=== PATIENT | female | born 1970 | race Caucasian/White ===

== ENCOUNTER 2019-11-29 10:04 | Emergency (ER) | payer MEDICAID, SELFPAY ==
[2019-11-29 10:08] VITALS: BP 128/76; PULSE 87; RESP 18; TEMP 36.8; O2SAT 100; BMI 27.4
[2019-11-29 10:16] LABS: Glucose Point of Care 153 mg/dL (70-110)
--- NOTE | 2019-11-29 10:31 | ECG_ITS ---
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 Measurements Intervals [place] Rate: 71 P: 57 CT: 122 QRS: 48 QRSD: 90 T: 34 QT: 373 QTc: 407 Interpretive Statements SINUS RHYTHM POSSIBLE LEFT ATRIAL ENLARGEMENT [-0.1mV P WAVE IN V1/V2] Compared to ECG 01/24/2018 05:42:34 No significant changes Electronically Signed On 12-01-2019 0:21:47 CDT by Gerardo Devries M.D. [email or web address]
--- NOTE | 2019-11-29 10:31 | XRR_ITS ---
PROCEDURE INFORMATION: Exam: XR Right Ribs with PA Chest, 3 Views Exam date and time: 11/29/2019 11:10 AM Age: 49 years old Clinical indication: Injury or trauma; Fall; Initial encounter; Rib area; Blunt trauma (contusions or hematomas); Additional info: Fall, R rib pain TECHNIQUE: Imaging protocol: XR Right ribs 3 views with PA chest. COMPARISON: CR Chest 1 view [id number] 01/25/2018 4:53 AM FINDINGS: Lungs: Unremarkable. No consolidation. Pleural space: Unremarkable. No pleural effusion. No pneumothorax. Heart/Mediastinum: Unremarkable. No cardiomegaly. Bones/joints: There is a nondisplaced fracture of the lateral aspect of the right 7th and 8th ribs. XR/XR ribs RT mn 3V w CXR1V [id number] IMPRESSION: There is a nondisplaced fracture of the lateral aspect of the right 7th and 8th ribs.
--- NOTE | 2019-11-29 10:32 | W.ED.SYNCOPE ---
HPI - Syncope General: Chief Complaint: Fall Stated Complaint: BS LOW AND FALL WITH RIB PAIN TODAY Time Seen by Provider: 11/29/19 10:11 Source: patient Mode of arrival: ambulatory Limitations: no limitations History of Present Illness: HPI narrative: Patient is a 49-year-old female who presents to ED today with complaint of a syncopal episode and right rib pain. Patient tells me she has a history of hypoglycemia and believes that is what happened today. She states about 2 weeks ago she had a similar incident where she became lightheaded and dizzy and sweaty and almost passed out . She states she ate something sweet and began feeling better. She states today she had similar symptoms but a family member in the room states she lost consciousness for approximately 45 seconds. There was no seizure like movements. There was no incontinence. Patient did not stop breathing. She states when she came to she was able to eat peanut butter and something sugary and began feeling better. Family member states when she passed out she struck her right ribs on a coffee table. Patient denies chest pain, shortness of breath, difficulty breathing. MD complaint: loss of consciousness, felt faint and collapsed Onset (ago): hour(s) -: second(s) Prodromal symptoms: vision changes, lightheaded and diaphoresis Witnessed: Yes - by Other (family) Context: at rest Injuries sustained associated with event: chest Associated symptoms: Deny abdominal pain, chest pain (R rib pain), fever(s), headache(s), lightheadedness or nausea History: previous syncopal episode (pre-syncopal event) Treatments prior to arrival: glucose (ate peanut butter and sugary drink ) Review of Systems Const: Denies: fever(s), chills, body aches, change in appetite, change in weight, fatigue or malaise Eyes: Denies: change in vision, blurry vision, photophobia, floaters or seeing flashes Card: Denies: chest pain (R rib pain), palpitations, irregular heart rhythm, edema, swelling of feet/ankles, lightheadedness, syncope, pre-syncope, dyspnea on exertion or orthopnea Resp: Denies: dyspnea, productive cough, hemoptysis or chest congestion GI: Denies: abdominal pain, nausea, vomiting or diarrhea : Denies: flank pain, difficulty voiding, dysuria, urinary frequency or urinary urgency Musc: Denies: neck pain, back pain, extremity pain, extremity swelling, joint pain or joint swelling Skin/Breast: Denies: rash Neuro: Reports: dizziness (subsided now); Denies: headache(s), numbness in extremities, weakness in extremities, sensory changes, lack of coordination or difficulty walking Physical Exam Const: COMMON NORMALS: no acute distress, average body habitus, patient oriented x3, no limitations, healthy appearing, alert and well nourished ORIENTATION/CONSCIOUSNESS: Yes oriented to person, Yes oriented to place and Yes oriented to time HENMT: COMMON NORMALS: normocephalic and atraumatic HEAD & SCALP: normocephalic and atraumatic Eye: COMMON NORMALS: Equal, round and reactive pupils present and EOMs intact bilaterally GENERAL EYE: appearance normal, both eyes and all related structures PUPIL: Yes Equal, round and reactive pupils present Neck/C-Spine: COMMON NORMALS: full ROM CERVICAL SPINE: Yes cervical ROM normal, No pain with cervical ROM, No Cervical spine tenderness and No Paracervical muscle tenderness Chest: COMMONS NORMALS: normal inspection of the chest OTHER: TTP R lower anterior/lateral ribs; no crepitus Resp: COMMON NORMALS: normal respiratory effort and clear to auscultation bilaterally AUSCULTATION: clear to auscultation bilaterally Cardio: COMMON NORMALS: regular rate and regular rhythm RATE: regular rate RHYTHM: regular rhythm GI: COMMON NORMALS: Normal to inspection, nondistended, normoactive bowel sounds present, Soft to palpation, non-tender, No hepatosplenomegaly present and no masses PALPATION: Yes Soft to palpation and Yes No hepatosplenomegaly present Extremity: GENERAL: Yes normal exam except as noted Neuro: COMMON NORMALS: patient oriented x3 SENSORIUM/ORIENTATION: Yes alert, Yes oriented to person, Yes oriented to place and Yes oriented to time Skin: COMMON NORMALS: no rashes or lesions noted GENERAL SKIN EXAM: no rashes or lesions noted Course Vital Signs: Vital signs: Vital Signs Temperature 98.3 F 11/29/19 10:08 Pulse Rate 64 11/29/19 12:44 Respiratory Rate 16 11/29/19 12:44 Blood Pressure 114/72 11/29/19 12:44 Pulse Oximetry 96 11/29/19 12:44 MDM - Syncope MDM Narrative: Medical decision making narrative: Patient's vitals have been stable here. Her laboratory work-up overall is fairly benign. She does have some elevated LFTs. Her ALT has been elevated previously. She has no history of hepatitis. Recommend these get followed up with her PCP. Head CT is normal. She does have a right rib fracture that is nondisplaced. Recommend she get a glucometer so she is able to test her blood sugars when she becomes symptomatic. Return to ED precautions given. Lab Data: Labs: Lab Results 11/29/19 11/29/19 11/29/19 Range/Units 10:12 10:39 10:39 WBC 10.0 (4.0-10.0) 10^3/ uL RBC 4.26 (4.1-5.3) 10^6/u L Hgb 13.2 (11.5-15.3) g/dL Hct 41.5 (37.0-47.0) % MCV 97.4 (81-99) fL MCH 31.0 (28.0-34.0) pg MCHC 31.8 (30.0-36.0) g/dL RDW 13.1 (12.1-15.1) % Plt Count 271 (130-400) 10^3/c mm MPV 10.0 (7.4-10.4) fL Neut % (Auto) 74.4 % Lymph % (Auto) 16.0 % [place] % (Auto) 4.8 % Eos % (Auto) 3.5 % Baso % (Auto) 0.7 % Neut # (Auto) 7.44 (1.8-7.7) 10^3/u L Lymph # (Auto) 1.6 (0.8-4.8) 10^3/u L Hettinger # (Auto) 0.5 (0.2-0.9) 10^3/u L Eos # (Auto) 0.4 (0.0-0.8) 10^3/u L Baso # (Auto) 0.1 (0.0-0.1) 10^3/u L Nucleated RBC % (a uto) 0 % Nucleated RBCs # 0.0 /100WBC Sodium 138 (136-145) mmol/L Potassium 4.2 (3.5-5.1) mmol/L Chloride 102 (98-107) mmol/L Carbon Dioxide 27 (22-29) mmol/L Anion Gap 13.2 (5-19) BUN 15 (6-20) mg/dL Creatinine 0.9 (0.5-0.9) mg/dL GFR Calculation 67.1 L (90-130) mL/min Glucose 126 H (65-115) mg/dL POC Glucose 153 (70-110) mg/dL Calculated Osmolal ity 284 L (285-295) mOsm/k g Calcium 9.4 (8.5-10.5) mg/dL Total Bilirubin 0.2 (0.15-1.2) mg/dL AST 111 H (0-32) U/L ALT 175 H (0-33) U/L Alkaline Phosphata se 101 (35-105) IU/L Troponin T Gen 5 n g/L (0-10) ng/L Total Protein 6.6 (6.6-8.7) g/dL Albumin 4.3 (3.5-5.2) g/dL Globulin 2.3 (1.3-4.6) g/dL Urine Opiates Scre en (Negative) ng/mL Ur Barbiturates Sc reen (Negative) ng/mL Ur Phencyclidine S crn (Negative) ng/mL Ur Amphetamines Sc reen (Negative) ng/mL U Benzodiazepines Scrn (Negative) ng/mL Urine Cocaine Scre en (Negative) ng/mL U Marijuana (THC) Screen (Negative) ng/mL 11/29/19 11/29/19 Range/Units 10:39 11:20 WBC (4.0-10.0) 10^3/ uL RBC (4.1-5.3) 10^6/u L Hgb (11.5-15.3) g/dL Hct (37.0-47.0) % MCV (81-99) fL MCH (28.0-34.0) pg MCHC (30.0-36.0) g/dL RDW (12.1-15.1) % Plt Count (130-400) 10^3/c mm MPV (7.4-10.4) fL Neut % (Auto) % Lymph % (Auto) % [place] % (Auto) % Eos % (Auto) % Baso % (Auto) % Neut # (Auto) (1.8-7.7) 10^3/u L Lymph # (Auto) (0.8-4.8) 10^3/u L Hettinger # (Auto) (0.2-0.9) 10^3/u L Eos # (Auto) (0.0-0.8) 10^3/u L Baso # (Auto) (0.0-0.1) 10^3/u L Nucleated RBC % (a uto) % Nucleated RBCs # /100WBC Sodium (136-145) mmol/L Potassium (3.5-5.1) mmol/L Chloride (98-107) mmol/L Carbon Dioxide (22-29) mmol/L Anion Gap (5-19) BUN (6-20) mg/dL Creatinine (0.5-0.9) mg/dL GFR Calculation (90-130) mL/min Glucose (65-115) mg/dL POC Glucose (70-110) mg/dL Calculated Osmolal ity (285-295) mOsm/k g Calcium (8.5-10.5) mg/dL Total Bilirubin (0.15-1.2) mg/dL AST (0-32) U/L ALT (0-33) U/L Alkaline Phosphata se (35-105) IU/L Troponin T Gen 5 n g/L 8 (0-10) ng/L Total Protein (6.6-8.7) g/dL Albumin (3.5-5.2) g/dL Globulin (1.3-4.6) g/dL Urine Opiates Scre en Negative (Negative) ng/mL Ur Barbiturates Sc reen Negative (Negative) ng/mL Ur Phencyclidine S crn Negative (Negative) ng/mL Ur Amphetamines Sc reen Negative (Negative) ng/mL U Benzodiazepines Scrn Negative (Negative) ng/mL Urine Cocaine Scre en Negative (Negative) ng/mL U Marijuana (THC) Screen Positive H (Negative) ng/mL Imaging Data^: CT Head: Radiologist's impression: [address] [address] [address] Scan Report Signed Patient: Trina Medina Unit #: [id number] : 1970 Age/Sex: 49 / F ADM Date: 11/29/19 Loc: ER Room/Bed: Attending Dr: Ordering Provider/Ordering MD: Barbara Flowers Date of Service: 11/29/19 Procedure(s): CT head wo con* [id number] Accession Number(s): [id number] Report Number: [id number] PROCEDURE INFORMATION: Exam: CT Head Without Contrast Exam date and time: 11/29/2019 10:55 AM Age: 49 years old Clinical indication: Injury or trauma; Initial encounter; Blunt trauma (contusions or hematomas); With loss of consciousness; Not specified; Injury date: 11/28/2019; Patient HX: Syncope, fall; Additional info: Syncopal episodes TECHNIQUE: Imaging protocol: Computed tomography of the head without contrast. Radiation optimization: All CT scans at this facility use at least one of these dose optimization techniques: automated exposure control; mA and/or kV adjustment per patient size (includes targeted exams where dose is matched to clinical indication); or iterative reconstruction. COMPARISON: No relevant prior studies available. RADIATION DOSE METRICS: Total DLP (mGy-cm): 761.02 FINDINGS: Brain: Quiroz white matter distinction is maintained throughout the brain. No radiographic evidence of intracranial hemorrhage. No CT evidence of mass hemorrhage or acute infarction. Ventricles: Ventricles are of normal size and configuration. Bones/joints: Unremarkable. No acute fracture. Sinuses: Visualized sinuses are unremarkable. No fluid levels. Mastoid air cells: Visualized mastoid air cells are well aerated. Soft tissues: Unremarkable. Other findings: No intra or extra-axial masses, lesions or collections. CT/CT head wo con* [id number] IMPRESSION: No acute intracranial process is appreciated. Radiation Dose CTDIVOL = (mGy): DLP = 761.02 (mGy-cm) Dictated By: Walter Araya MD Signed By: Walter Araya MD Signed Date/Time: 11/29/19 1157 DD/ 1156 R ribs/CXR: My impression: single R non-displaced rib fx EKG Data^: EKG 1: EKG interpretation date: 11/29/19 EKG interpretation time: 10:51 Interpretation: Sinus rhythm Rate [address] elevation or depression changes noted Discharge Plan Discharge Patient Disposition: Home Clinical Impression: Elevated LFTs Right rib fracture Qualifiers: Encounter type: initial encounter Rib fracture type: single rib Fracture type: closed Qualified Code(s): S22.31XA - Fracture of one rib, right side, initial encounter for closed fracture Episode of syncope Qualifiers: Syncope type: unspecified Qualified Code(s): R55 - Syncope and collapse Condition: Stable Prescriptions: New hydrocodone-acetaminophen 5-325 mg tablet 1 tab PO Q6H PRN (Reason: pain) Qty: 14 RF: 0 No Action Aspir-81 81 mg Tablet,Delayed Release (Dr/Ec) 81 mg PO DAILY RF: 0 Aleve 220 mg Tablet 440 mg PO PRN RF: 0 Discharge Orders: Discharge Order (Routine); Ordered 11/29/19 Ordered By: Barbara Flowers Patient Instructions: Hypoglycemia, Rib Fracture (ED), Fractures - Rib Activity Restrictions/Additional Instructions: As discussed you may purchase a glucometer so you are able to measure your blood sugar when you feel symptomatic. Please follow-up with your primary care provider in 1 week. As discussed your liver enzymes are elevated today. These need to be rechecked or reevaluated through primary care. Stand Alone Forms: Work/School Release Discharge Date/Time: 11/29/19 12:45 Coding Level of Care Code ED [employer] for [employer] Fwd Exam Comprehensive
[2019-11-29 10:37] VITALS: BP 128/76; PULSE 80; RESP 16; O2SAT 99
[2019-11-29 10:46] LABS: Basophils # 0.1 10^3/uL (0.0-0.1); Basophils % 0.7 %; Eosinophils # 0.4 10^3/uL (0.0-0.8); Eosinophils % 3.5 %; Hematocrit 41.5 % (37.0-47.0); Hemoglobin 13.2 g/dL (11.5-15.3); Lymphocytes # 1.6 10^3/uL (0.8-4.8); Mean Corpuscular HGB Conc 31.8 g/dL (30.0-36.0); Mean Corpuscular Volume 97.4 fL (81-99); Monocytes # 0.5 10^3/uL (0.2-0.9); Monocytes % 4.8 %; Neutrophils # 7.44 10^3/uL (1.8-7.7); Neutrophils % 74.4 %; Nucleated Red Blood Cells % 0 %; Platelet Count 271 10^3/cmm (130-400); Red Blood Count 4.26 10^6/uL (4.1-5.3); Red Cell Distribution Width 13.1 % (12.1-15.1)
[2019-11-29 11:25] LABS: Alanine Aminotransferase 175 U/L (0-33); Albumin Level 4.3 g/dL (3.5-5.2); Alkaline Phosphatase 101 IU/L (35-105); Anion Gap 13.2 (5-19); Aspartate Amino Transferase 111 U/L (0-32); Blood Urea Nitrogen 15 mg/dL (6-20); Calcium 9.4 mg/dL (8.5-10.5); Carbon Dioxide 27 mmol/L (22-29); Chloride 102 mmol/L (98-107); Globulin 2.3 g/dL (1.3-4.6); Glomerular Filtration Rate 67.1 mL/min (90-130); Glucose 126 mg/dL (65-115); Osmolality Calculated 284 mOsm/kg (285-295); Potassium 4.2 mmol/L (3.5-5.1); Sodium 138 mmol/L (136-145); Total Bilirubin 0.2 mg/dL (0.15-1.2); Total Protein 6.6 g/dL (6.6-8.7)
[2019-11-29 11:27] VITALS: RESP 18
[2019-11-29 11:27] LABS: Troponin T (5th) Once 8 ng/L (0-10)
[2019-11-29] MEDS: morphine 4 mg/mL SDV 1 mL IM (11:27)
[2019-11-29] MEDS: ondansetron 2 mg/ML SDV 2 mL 4 MG IM (11:27)
[2019-11-29 12:00] VITALS: BP 114/72; RESP 20; O2SAT 96
[2019-11-29 12:08] LABS: Amphetamines Screen Urine Negative (Negative); Barbiturates Screen Urine Negative (Negative); Benzodiazepines Screen Urine Negative (Negative); Cocaine Screen Urine Negative (Negative); Opiate Screen Urine Negative (Negative); PCP Screen Urine Negative (Negative); THC Screen Urine Positive (Negative)
[2019-11-29 12:44] VITALS: BP 114/72; PULSE 64; RESP 16; O2SAT 96
== END 2019-11-29 12:45 | disposition home or self-care (01) ==
PROVIDERS: Emergency Provider Physician Assistant
DX: S22.31XA Fracture of one rib, right side, initial encounter for closed fracture (principal); R55 Syncope and collapse; R79.89 Other specified abnormal findings of blood chemistry; Z79.82 Long term (current) use of aspirin; W19.XXXA Unspecified fall, initial encounter
CPT/HCPCS: 12345; 36415; 36416; 70450; 71101; 80053; 80306; 82962; 84484; 85025; 93005; 96372; 99283; J2270; J2405

== ENCOUNTER → 2023-05-17 09:29 | Outpatient (BNVA) | payer MEDICAID, SELFPAY | PROVIDERS: PCP Family Medicine; Visit Provider Family Medicine | DX: R06.02 Shortness of breath (principal) | CPT/HCPCS: 71046 ==